=== PATIENT | female | born 2000 | race Caucasian/White ===

== ENCOUNTER 2020-11-15 09:42 | Emergency (ER) | payer OTHER ==
--- NOTE | 2020-11-15 11:23 | EDM.PDOC ---
ED HPI GENERAL MEDICAL PROBLEM - General Chief Complaint: ENT Problem Stated Complaint: SORE THROAT Time Seen by Provider: 11/15/20 11:00 Source of Information: Reports: Patient History Limitations: Reports: No Limitations - History of Present Illness INITIAL COMMENTS - FREE TEXT/NARRATIVE: 20 yo female presents to the ER with a 6 day hx of a sore throat. It initial was more tolerable but worsened over the last 48 hours. She has been treating with tylenol with some relief. She is also having pressure in her ears. occasional cough. Afebrile. denies rash. normal appetite. denies N/V/D. Throat Pain Score (Numeric/FACES): 7 - Related Data Allergies Allergy/AdvReac Type Severity Reaction Status Date / Time Penicillins Allergy Hives Verified 11/15/20 10:12 Home Meds: Home Meds * Control 1 tab PO DAILY 11/15/20 [History] *Nasal Wells 1 dose GAGAN ASDIRECTED 11/15/20 [History] Albuterol Sulfate [Albuterol Sulfate Hfa] 1 dose INH ASDIRECTED 11/15/20 [History] Montelukast [Singulair] 10 mg PO BEDTIME 11/15/20 [History] Past Medical History - Past Surgical History Musculoskeletal Surgical History: Reports: Arthroscopic Knee Social & Family History - Tobacco Use Tobacco Use Status *Q: Never Tobacco User - Caffeine Use Caffeine Use: Reports: Coffee, Energy Drinks, Soda - Alcohol Use Days Per Week of Alcohol Use: 1 Number of Drinks Per Day: 3 Total Drinks Per Week: 3 - Recreational Drug Use Recreational Drug Use: No ED ROS ENT - Review of Systems Review Of Systems: See Below Constitutional: Denies: Fever, Fatigue HEENT: Reports: Ear Pain, Throat Pain. Denies: Rhinitis, Sinus Problem Respiratory: Reports: Cough. Denies: Shortness of Breath, Wheezing, Sputum Cardiovascular: Denies: Chest Pain GI/Abdominal: Denies: Abdominal Pain, Diarrhea, Nausea ED EXAM, ENT - Physical Exam Exam: See Below Exam Limited By: No Limitations General Appearance: Alert, WD/WN, No Apparent Distress Ears: Normal External Exam, Normal Canal, Hearing Grossly Normal, TM Fluid. No: TM Bulging, TM Erythema Nose: Other (moderate erythema moderate turbin edema) Mouth/Throat: Hoarse Voice, Pharyngeal Erythema, Throat Pain. No: Lip Swelling Head: Atraumatic, Normocephalic Neck: Supple, Non-Tender, Lymphadenopathy (R), Lymphadenopathy (L) Respiratory/Chest: No Respiratory Distress, Lungs Clear, Normal Breath Sounds, No Accessory Muscle Use, Chest Non-Tender. No: Crackles, Rhonchi, Wheezing Cardiovascular: Regular Rate, Rhythm, No Murmur GI/Abdominal: Soft, Non-Tender Course - Vital Signs Last Recorded V/S: Last Vital Signs Temp 36.6 C 11/15/20 10:11 Pulse 63 11/15/20 10:11 Resp 14 11/15/20 10:11 BP 123/76 11/15/20 10:11 Pulse Ox 98 11/15/20 10:11 - Orders/Labs/Meds Orders: Active Orders 24 hr Category Date Time Status CULTURE STREP A CONFIRMATION [] Stat Lab 11/15/20 10:32 Results STREP SCRN A RAPID W CULT CONF [] Stat Lab 11/15/20 10:32 Results Labs: Laboratory Tests 11/15/20 Range/Units 10:32 SARS-CoV-2 RNA (MARY) Negative (NEGATIVE) Departure - Departure Time of Disposition: 11:24 Disposition: Home, Self-Care 01 Condition: Good Clinical Impression: Pharyngitis Qualifiers: Pharyngitis/tonsillitis etiology: unspecified etiology Qualified Code(s): J02.9 - Acute pharyngitis, unspecified - Discharge Information *PRESCRIPTION DRUG MONITORING PROGRAM REVIEWED*: Not Applicable *COPY OF PRESCRIPTION DRUG MONITORING REPORT IN PATIENT DAISY: Not Applicable Instructions: Pharyngitis, [id number] Referrals: PCP,None [Primary Care Provider] - Forms: ED Department Discharge Additional Instructions: COVID and Strep both negative. the Strep is culturing so if it grows out in the next 48 hours you will be notified increase fluid intake with goal 64 ounces you may find benefit from gargling with salt water use OTC nasal cold medication to help decrease the pressure in your ears Rest Sepsis Event Note (ED) - Evaluation Sepsis Screening Result: No Definite Risk - Focused Exam Vital Signs: Vital Signs Temp Pulse Resp BP Pulse Ox 11/15/20 10:11 36.6 C 63 14 123/76 98
== END 2020-11-15 11:33 | disposition home or self-care (01) ==
LOC: JP.ED 09:42
DX: J02.9 Acute pharyngitis, unspecified (principal); Z88.0 Allergy status to penicillin; Z20.822 Contact with and (suspected) exposure to COVID-19
CPT/HCPCS: 87081; 87880-QW; 99283; U0002